=== PATIENT | female | born 1970 | race Caucasian/White ===

== ENCOUNTER 2016-08-20 14:26 | Observation (INO) ==
--- NOTE | 2016-08-20 14:44 | EKG Report ---
Stationary ECG Study [facility] ER Test Date: 08/20/2016 2:36:43 PM Pat Name: JESSICA MEEHAN Department: Room: Gender: F Memorial Designer: Carine Hernandez : 1970 Requested by: Jhonny Granado Order Number: [id number] Reading MD: PADMINI FLORES Intervals [place] Rate: 76 P: 33 [place]: 161 QRS: 29 QRSD: 89 T: 36 QT: 401 QTc: 431 Interpretive Statements SINUS RHYTHM Electronically Signed On 08-20-16 17:42:54 CDT by PADMINI FLORES [email or web address]
[2016-08-20] MEDS ORDERED: ASPIRIN 325 MG TABLET PO STA ×2 (15:05→15:07)
[2016-08-20] MEDS ORDERED: NITROGLYCERIN SL 0.4 MG TABLET SL STA (15:06)
[2016-08-20] MEDS ORDERED: ONDANSETRON 4 MG/2 ML VIAL IV STA (15:07)
[2016-08-20] MEDS ORDERED: ENOXAPARIN 100 MG/ML SYRINGE SUBCUT STA (15:07)
[2016-08-20] MEDS ORDERED: NITROGLYCERIN SL 0.4 MG TABLET SL PRN (15:07)
[2016-08-20] MEDS ORDERED: HYDROmorphone 2 MG/1 ML VIAL IV STA (15:07)
[2016-08-20] MEDS ORDERED: NITROGLYCERIN SL 0.4 MG TABLET SL ONE (15:08)
[2016-08-20] MEDS ORDERED: ASPIRIN 325 MG TABLET ONE (15:08)
[2016-08-20 15:25] LABS: Basophils # 0.1 10*3/uL (0.0-0.2); Basophils % 0.5 % (0.0-0.8); Eosinophils # 0.4 10*3/uL (0.0-0.87); Eosinophils % 2.6 % (0.00-10.9); Hematocrit 46.4 VOL% (35.7-47.0); Hemoglobin 15.3 GM/DL (12.0-16.0); Immature Granulocytes % 0.5 %; Immature Granulocytes Absolute 0.07 #; Lymphocytes # 3.2 10*3/uL (1.4-4.0); Lymphocytes % 23.6 % (21.3-54.2); Mean Corpuscular Hemoglobin 28 PG (27-34); Mean Corpuscular Volume 85.3 FL (87-102); Mean Platelet Volume 12.2 FL (9.6-12.0); Monocytes # 0.7 10*3/uL (0.11-0.8); Monocytes % 5.3 % (1.7-12.7); Neutrophils # 9.1 10*3/uL (1.4-7.4); Neutrophils % 67.5 % (38.7-73.9); Platelet Count 244 T/CUMM (130-400); Red Blood Count 5.44 MC/CUMM (3.8-5.5); Red Cell Distribution Width 13.5 % (9.3-17.3); White Blood Count 13.5 T/CUMM (4-12)
[2016-08-20] MEDS ORDERED: ONDANSETRON 4 MG/2 ML VIAL ONE (15:32)
[2016-08-20] MEDS ORDERED: ENOXAPARIN 100 MG/ML SYRINGE SUBCUT ONE (15:32)
[2016-08-20] MEDS ORDERED: HYDROmorphone 2 MG/1 ML VIAL ONE (15:32)
--- NOTE | 2016-08-20 15:53 | XRay Report ---
XR chest 1V portable Indication: Chest pain Comparison: Chest x-ray dated June 29, 2014 Technique: Single frontal view of the chest. Findings: The cardiomediastinal silhouette is stable in configuration. Chronic change of the lungs without focal consolidation, pleural effusion, or pneumothorax. Visualized osseous and surrounding soft tissue structures appear grossly unchanged. IMPRESSION: Stable chest x-ray without acute cardiopulmonary process demonstrated. PROCEDURE INTERPRETED AT [facility] DEPARTMENT OF RADIOLOGY Final Report Signed by: Dr Ken Powers
[2016-08-20 16:00] LABS: Alanine Aminotransferase 33 U/L (13-56); Albumin 3.4 G/DL (3.4-5.0); Alkaline Phosphatase 188 U/L (45-117); Aspartate Amino Transferase 20 U/L (0-37); Bilirubin,Total < 0.39 MG/DL (0.2-1.0); Blood Urea Nitrogen 13 MG/DL (7-18); Calcium 9.4 MG/DL (8.5-10.1); Glucose 87 MG/DL (74-106); Magnesium 2.6 MG/DL (1.8-2.4); Osmolality,Calculated 277.4 MOS/KG (273-304); Potassium 4.7 MMOL/L (3.5-5.1); Sodium 140 MMOL/L (136-145); Total Protein 7.9 G/DL (6.4-8.3); Troponin I Only < 0.015 NG/ML (0.00-0.045)
--- NOTE | 2016-08-20 16:53 | Emergency Department Note ---
Domonique Ayala Rolonda, am scribing for, and in the presence of, Clarke Rouse MD 15:16. Nasim Ayala Phillip K, MD, personally performed the services described in this documentation, ascribed by Jane Youssef in my presence, and it is both accurate and complete [id number] . 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 Unable to get blood pressure in triage pt would not hold still. Mode of Arrival: Wheelchair Limitations: No Limitations Source: Patient, Old Records Reviewed, RN Notes Reviewed Time Seen by Provider: 08/20/16 14:47 - History of Present Illness HPI Narrative: Pt is a 46 y/o female who presents to the ED via wheelchair with c/o chest pain that worsens with deep breaths with an onset of x2 hours. Pt has a SHx of smoking and a PMHx of HTN. She states that "it feels like an elephant is standing on my chest." Pt states that she was getting up to go outside but could not due to SOB and chest pain. She confirms vomiting, breaking out in a cold sweat, nausea but denies fever and cough. No other complain/pain in ED. Onset (ago): hour(s) Consistency: constant Severity: severe Severity scale (1-10): 8 (heavy) Allergies/Adverse Reactions: Allergies Allergy/AdvReac Type Severity Reaction Status Date / Time ketorolac [From Toradol] Allergy HIVES Verified 08/20/16 15:41 Home Medications: Home Medications Medication Instructions Recorded Confirmed Type Gabapentin 400 mg PO TID 08/20/16 08/20/16 History Hydrocodone/Acetaminophen [[place] 1 each PO BID 08/20/16 08/20/16 History 10-325 Tablet] Omeprazole [Prilosec] 20 mg PO BID 08/20/16 08/20/16 History Promethazine Tab [Phenergan Tab] 25 mg PO DAILY PRN 08/20/16 08/20/16 History Tizanidine HCl [Zanaflex] 4 mg PO TID PRN 08/20/16 08/20/16 History diazePAM [Diazepam] 10 mg PO BID PRN 08/20/16 08/20/16 History Review of System - Review of System 12 point system: reviewed and no additional remarkable complaints except as stated - Review of System Constitutional: Present: diaphoresis (cold ). Absent: fever Head/Ears/Nose/Throat: Absent: earache Respiratory: Present: respiratory distress (SOB). Absent: cough Cardiovascular: Present: chest pain (chest wall pain; worsens with deep breaths) Gastrointestinal: Present: nausea, vomiting. Absent: abdominal pain Medical,Surgical,& Family Hx - Medical History Cardio: History of: Hypertension Gastrointestinal: History of: GERD, GI Problems (Gastroporesis) Musculoskeletal: History of: Back/Neck Problems (Chronic back pain) - Social History Smoking Status: Current every day smoker Exam Vital Signs: Vital Signs Temperature 98 F 08/20/16 15:25 Pulse Rate 74 08/20/16 15:25 Respiratory Rate 18 08/20/16 15:25 Blood Pressure 148/89 08/20/16 15:25 O2 Sat by Pulse Oximetry 97 08/20/16 14:34 - General General appearance: alert, in distress - Head Head exam: Present: atraumatic, normocephalic - Eye Eye exam: Present: normal appearance, PERRL, EOMI - ENT ENT exam: Present: mucous membranes moist. Absent: mucous membranes dry - Neck Neck exam: Present: full ROM. Absent: tenderness - Chest Chest inspection: Present: tenderness (soreness across chest wall) - Respiratory Respiratory exam: Present: normal lung sounds bilaterally. Absent: rales - Cardiovascular Cardiovascular exam: Present: regular rate, normal rhythm, normal heart sounds. Absent: bradycardia - Abdominal Exam Abdominal exam: Present: soft. Absent: tenderness - Extremities Exam Extremities exam: Present: full ROM. Absent: tenderness - Back Exam Back exam: Present: full ROM. Absent: tenderness - Neurological Exam Neurological exam: Present: alert, oriented X3, CN II-XII intact - Psychiatric Psychiatric exam: Present: normal affect, normal mood - Skin Skin exam: Present: warm, dry, intact, normal color. Absent: rash Results - Labs CBC & BMP: 08/20/16 15:20 08/20/16 15:20 Lab Results: I have reviewed the patients labs Labs: Laboratory Tests 08/20/16 15:20 WBC 13.5 H RBC 5.44 Hgb 15.3 Hct 46.4 MCV 85.3 L Plt Count 244 MPV 12.2 H Neut # (Auto) 9.1 H Laboratory Tests 08/20/16 08/20/16 08/20/16 15:20 15:20 15:20 WBC RBC Hgb Hct MCV Plt Count MPV Neut # (Auto) ESR [place]gren 63 H D-Dimer, Quantitative <= 0.5 Sodium 140 Potassium 4.7 Chloride 105 Carbon Dioxide 28 BUN 13 GFR Calculation 103 Magnesium 2.6 H Alkaline Phosphatase 188 H Globulin 4.5 H Albumin/Globulin Ratio 0.7 L 08/20/16 15:20 WBC 13.5 H RBC 5.44 Hgb 15.3 Hct 46.4 MCV 85.3 L Plt Count 244 MPV 12.2 H Neut # (Auto) 9.1 H ESR [place] D-Dimer, Quantitative Sodium Potassium Chloride Carbon Dioxide BUN GFR Calculation Magnesium Alkaline Phosphatase Globulin Albumin/Globulin Ratio - EKG EKG results: interpreted by DOC, WNL, sinus rhythm - Diagnostic Findings Procedure: Chest x-ray: report reviewed by me (Stable chest x-ray without acute cardiopulmonary process demonstrated.) Disposition Clinical Impression: Chest pain, Chest wall pain, Possible angina, Tobacco abuse Case discussed with: patient Disposition: Still a Patient Condition: Guarded Additional Instructions: Admit to the hospitalist
--- NOTE | 2016-08-20 17:54 | Hospitalist History & Physical ---
Assessment and Plan - Time spent with patient Time spent with patient: Greater than 30 minutes (1) Chest pain Status: Acute Assessment and plan: Patient had fairly typical chest pain of approximately 1 hour duration. She had no significant EKG changes and her initial biomarkers were negative. She will be placed in observation overnight with cardiac monitoring, serial cardiac biomarkers and EKGs. She will be treated with aspirin, nitrates, beta-blockers , Lovenox. Cardiology will be consulted for further evaluation and care. Current Visit: Yes (2) Hypertension Status: Chronic Assessment and plan: Patient has chronic essential hypertension. She is hypertensive in the emergency department and will treat as noted above. Current Visit: Yes Qualifiers: Hypertension type: essential hypertension Qualified Code(s): I10 - Essential (primary) hypertension (3) Gastroparesis Status: Chronic Assessment and plan: Patient states she has had gastroparesis and takes erythromycin 3 times [address] She seen Dr. Marco Antonio Bowman and has had EGD with esophageal dilatation in the past. Current Visit: Yes (4) Hyperlipidemia Status: Chronic Assessment and plan: Patient states she has hyperlipidemia for which she takes Lipitor, dose unknown. Will check lipid panel in the a.m. and continue her statin therapy. Current Visit: Yes (5) Tobacco dependence Status: Chronic Assessment and plan: Have recommended smoking cessation and will supply a nicotine patch. Current Visit: Yes History of Present Illness Chief complaint: Chest pain History of present illness: Ms. Salazar is a 46 year old white female who states that approximately 1 PM this afternoon she was sitting down and began having severe substernal chest pressure like an elephant sitting on her chest associated with shortness of breath, diaphoresis, nausea and dizziness. She states when she got up to walk it actually exacerbated the pain. She states that she had the pain for approximately 1 hour duration which was relieved in the emergency room and they gave her some pain medication. She denies any fevers, chills, cough, sputum production, hemoptysis, abdominal pain, melena, hematochezia, hematemesis, dysuria, hematuria, urinary frequency urgency incontinence, increasing lower extremity edema, focal motor weakness or paresthesias, syncope or presyncope. Her primary care provider is Dr. Kelechi Payne and her structural draftsman is Dr. Marco Antonio Bowman. Home Medications Medication Instructions Recorded Confirmed Type Gabapentin 400 mg PO TID 08/20/16 08/20/16 History Hydrocodone/Acetaminophen [[place] 1 each PO BID 08/20/16 08/20/16 History 10-325 Tablet] Omeprazole [Prilosec] 20 mg PO BID 08/20/16 08/20/16 History Promethazine Tab [Phenergan Tab] 25 mg PO DAILY PRN 08/20/16 08/20/16 History Tizanidine HCl [Zanaflex] 4 mg PO TID PRN 08/20/16 08/20/16 History diazePAM [Diazepam] 10 mg PO BID PRN 08/20/16 08/20/16 History Allergies Allergy/AdvReac Type Severity Reaction Status Date / Time ketorolac [From Toradol] Allergy HIVES Verified 08/20/16 15:41 Medical,Surgical,& Family Hx - Medical History Cardio: History of: Hypertension Gastrointestinal: History of: GERD, GI Problems (Gastroporesis) Musculoskeletal: History of: Back/Neck Problems (Chronic back pain) - Surgical History Abdominal Surgeries: Surgical HX of: Cholecystectomy, EGD (She has had upper endoscopy with esophageal dilatation) Reproductive Surgeries: Surgical HX of;: Hysterectomy - Family History Family History: Reports;: Family Heart Disease - Social History Smoking Status: Current every day smoker Frequency of Alcohol Use: None Type of Drug Use: None Marital Status: Functional capacity: independent ambulation 12 point system: reviewed and no additional remarkable complaints except as stated Exam - Constitutional Vitals: Period Temp Pulse Resp BP Sys/[place] Pulse Ox Last 24 Hr 98 F-98.0 F 74-74 18-24 148/89 97 General appearance: no acute distress - Head Head exam: Present: normocephalic, atraumatic - Eye Eye exam: Present: EOMI Pupils: Present: FOX - ENT ENT exam: Present: normal exam, normal oropharynx - Neck Neck exam: Present: normal inspection. Absent: lymphadenopathy, meningismus, tenderness, thyromegaly - Respiratory Respiratory exam: Present: clear to auscultation bilaterally. Absent: rales, rhonchi, wheezes - Cardiovascular Cardiovascular exam: Present: regular rate and rhythm. Absent: gallop, JVD, systolic murmur, tachycardia - GI/Abdominal GI/Abdominal exam: Present: normal bowel sounds, soft. Absent: mass, tenderness , rebound - Extremities Exam Extremities exam: Absent: calf tenderness, edema - Back Exam Back exam: Present: normal inspection - Neurological Exam Neurological exam: Present: alert, oriented X3, CN II-XII intact. Absent: motor sensory deficit - Psychiatric Psychiatric exam: Present: normal affect, normal mood. Absent: agitated, anxious - Skin Skin exam: Present: warm, dry. Absent: rash Results - Labs CBC & BMP: 08/20/16 15:20 08/20/16 15:20 Lab Results: I have reviewed the past 24 hour labs - EKG EKG shows: sinus rhythm - Diagnostic Findings Procedure: Chest x-ray: report reviewed by me
[2016-08-20] MEDS ORDERED: DIAZEPAM 5 MG TABLET PO PRN (19:38)
[2016-08-20] MEDS ORDERED: ONDANSETRON 4 MG/2 ML VIAL IV PRN (19:38)
[2016-08-20] MEDS ORDERED: PROMETHAZINE 25 MG TABLET PO PRN (19:38)
[2016-08-20] MEDS ORDERED: INSULIN LISPRO 100 UNIT/ML SUBCUT ONE (19:38)
[2016-08-20] MEDS ORDERED: DEXTROSE 50% 25 GM/50 ML VIAL IV PRN (20:14)
[2016-08-20] MEDS ORDERED: GLUCAGON 1 MG VIAL IM PRN (20:14)
[2016-08-20] MEDS ORDERED: ATORVASTATIN 80 MG TABLET PO SCH (21:00)
[2016-08-20] MEDS ORDERED: ERYTHROMYCIN STEARATE 250 MG TABLET PO SCH (22:00)
[2016-08-20] MEDS: GABAPENTIN 400 MG CAPSULE PO SCH (22:28)
[2016-08-20] MEDS: METOPROLOL TARTRATE 50 MG TABLET PO SCH (22:29)
[2016-08-20] MEDS: SODIUM CHLORIDE 0.45% 1,000 ML IV SCH (22:29)
[2016-08-20] MEDS: NITROGLYCERIN 2% OINT 1 INCH/GM PACK TOP SCH (22:29)
[2016-08-20] MEDS: ERYTHROMYCIN INJ 250 MG in SODIUM CHLORIDE 0.9% 100 ML IV SCH (22:29)
[2016-08-20] MEDS: INSULIN LISPRO 100 UNIT/ML SUBCUT SCH (22:35)
[2016-08-20] MEDS: tiZANidine 4 MG TABLET PO PRN (23:49)
[2016-08-21] MEDS: NITROGLYCERIN 2% OINT 1 INCH/GM PACK TOP SCH ×2 (00:27→05:42)
[2016-08-21 05:27] LABS: Risk Ratio 9.4; VLDL CHOLESTEROL 66.6 MG/DL
[2016-08-21] MEDS: tiZANidine 4 MG TABLET PO PRN (05:43)
[2016-08-21] MEDS: ERYTHROMYCIN INJ 250 MG in SODIUM CHLORIDE 0.9% 100 ML IV SCH ×2 (05:43→15:21)
[2016-08-21] MEDS: INSULIN LISPRO 100 UNIT/ML SUBCUT SCH ×2 (08:04→12:37)
[2016-08-21] MEDS: GABAPENTIN 400 MG CAPSULE PO SCH ×2 (08:47→15:21)
[2016-08-21] MEDS: METOPROLOL TARTRATE 50 MG TABLET PO SCH (08:48)
[2016-08-21] MEDS: SODIUM CHLORIDE 0.45% 1,000 ML IV SCH (08:51)
[2016-08-21] MEDS ORDERED: NICOTINE 21 MG/24 HR PATCH TRANSDERM SCH (09:00)
[2016-08-21] MEDS ORDERED: PANTOPRAZOLE 40 MG TABLET PO SCH (09:00)
[2016-08-21] MEDS ORDERED: ASPIRIN EC 325 MG TABLET PO SCH (09:00)
--- NOTE | 2016-08-21 09:47 | Cardiology Consult Note ---
<Sayda Cid - Last Filed: 08/21/16 09:09> Assessment and Plan - Time spent with patient Time spent with patient: Greater than 30 minutes (1) Non-cardiac chest pain Status: Acute Assessment and plan: SEE PLAN OF CARE LISTED BELOW. Current Visit: Yes (2) Costochondritis Status: Acute Assessment and plan: SEE PLAN OF CARE LISTED BELOW. Current Visit: Yes (3) Dyslipidemia Status: Chronic Assessment and plan: SEE PLAN OF CARE LISTED BELOW. Current Visit: Yes (4) Obesity Status: Chronic Assessment and plan: SEE PLAN OF CARE LISTED BELOW. Current Visit: Yes (5) GERD (gastroesophageal reflux disease) Status: Chronic Assessment and plan: SEE PLAN OF CARE LISTED BELOW. Current Visit: Yes (6) Tobacco abuse Status: Chronic Assessment and plan: SEE PLAN OF CARE LISTED BELOW. Current Visit: Yes (7) Hypertension Status: Chronic Assessment and plan: SEE PLAN OF CARE LISTED BELOW. Current Visit: Yes Qualifiers: Hypertension type: essential hypertension Qualified Code(s): I10 - Essential (primary) hypertension (8) Tobacco dependence Status: Chronic Assessment and plan: SEE PLAN OF CARE LISTED BELOW. Current Visit: Yes (9) Asthma attack Status: Acute Assessment and plan: SEE PLAN OF CARE LISTED BELOW. Current Visit: Yes (10) Snoring Status: Acute Assessment and plan: SEE PLAN OF CARE LISTED BELOW Current Visit: Yes (11) Daytime sleepiness Status: Acute Assessment and plan: SEE PLAN OF CARE LISTED BELOW. 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 Arciniega, new) PCP: Dr. Kelechi Payne Ms. Salazar is a 46 year old female without known history of coronary artery disease, not routinely followed by local cardiology. Patient has cardiac risk factors significant for hypertension, lipidemia, obesity, sedentary lifestyle, current everyday smoker (smokes one half pack per day) and family history of coronary artery disease (father from massive myocardial infarction at age 62). Patient has a past medical history of gastroparesis and asthma. 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 Patient was in her usual state of health until yesterday around 1:00 when she began experiencing chest discomfort. She describes this pain as a heaviness located midsternally. Nonradiating. Associated with diaphoresis, dizziness, nausea and shortness of breath. She reports that deep breathing and certain positions worsen her pain. No exertional component reported. Unable to identify any specific alleviating factors. She reports that this lasted approximately 45 minutes. This concerned her so she came to the emergency department for further evaluation. In the emergency department, she received nitroglycerin and aspirin. She reports that this did not help her chest discomfort. After receiving Dilaudid, her chest discomfort was completely relieved. Patient has been admitted under hospitalist's service and housed in the telemetry unit. Cardiology has been consulted to further evaluate her chest discomfort. Of note, patient has symptoms concerning for sleep apnea. She confirms snoring and daytime sleepiness. I will consult Dr. Mahmood to further evaluate possible sleep apnea Patient was seen and examined on the telemetry unit. She continues to complain of chest heaviness midsternally. On exam, her chest is extremely tender to light palpation. When asked to lean forward so her lungs could be auscultated, she grimaces in pain and reports that this exacerbates her chest discomfort. Cardiac biomarkers have been negative 2. EKG is unremarkable. Patient's chest pain is not cardiac in nature. I suspect that this is costochondritis. However, patient does have cardiac risk factors including: Hypertension, hyperlipidemia, current everyday smoker, obesity, sedentary lifestyle and family history of coronary artery disease. Because of this, she will need cardiac workup. She will be given an appointment for outpatient stress test at cardiovascular [place] [facility] upon discharge. She will then follow with Dr. Arciniega 1 week post stress test in order to review her results. She is in favor of this plan. I will further discuss with Dr. Arciniega and await his additional recommendations. ASSESSMENT/PLAN: 1. NONCARDIAC CHEST PAIN - Patient chest pain is not cardiac in nature. On exam, her chest is extremely tender to light palpation. When asked to lean forward so her lungs could be auscultated, she grimaces in pain and reports that this exacerbates her chest discomfort. Cardiac biomarkers have been negative 2. EKG is unremarkable. I suspect that this is costochondritis. However, patient does have cardiac risk factors including: Hypertension, hyperlipidemia, current everyday smoker, obesity, sedentary lifestyle and family history of coronary artery disease. Because of this, she will need further cardiac workup. She will be given an appointment for outpatient stress test at cardiovascular [place] [facility] upon discharge. She will then follow with Dr. Arciniega 1 week post stress test in order to review her results. She is in favor of this plan. Echo has been ordered in order to further evaluate patient's LV function. I will further discuss with Dr. Arciniega and await his additional recommendations. 2. COSTOCHONDRITIS - Continue hydrocodone, Zanaflex and aspirin. Defer further management this to attending. 3. DYSLIPIDEMIA - Lipid panel has been reviewed. Patient reports that she has not been taking her statin as instructed. Lipitor 80 mg has been reinitiated per hospital medicine. 4. HYPERTENSION - Under well control. Continue current plan of care. Lopressor has been decreased to a daily dose as this could possibly be contributing to her wheezing. May consider switching from beta-aditi to possibly an SONIA inhibitor if this does not help. 5. ACUTE ASTHMA ATTACK - Wheezing noted upon exam. Patient may benefit from steroids and breathing treatments. Will defer management this to attending. 6. GERD - Continue PPI. 7. TOBACCO ABUSE - Smoking cessation encouraged. 8. OBESITY - Weight loss encouraged. 9. POSSIBLE SLEEP APNEA - Patient reports snoring and daytime sleepiness. Dr. Mahmood has been consulted in order to further evaluate possible sleep apnea. CC: Emile Dawkins MD - Home Medications and Allergies Home Medications: Home Medications Medication Instructions Recorded Confirmed Type Gabapentin 400 mg PO TID 08/20/16 08/20/16 History Hydrocodone/Acetaminophen [[place] 1 each PO BID 08/20/16 08/20/16 History 10-325 Tablet] Omeprazole [Prilosec] 20 mg PO BID 08/20/16 08/20/16 History Promethazine Tab [Phenergan Tab] 25 mg PO DAILY PRN 08/20/16 08/20/16 History Tizanidine HCl [Zanaflex] 4 mg PO TID PRN 08/20/16 08/20/16 History diazePAM [Diazepam] 10 mg PO BID PRN 08/20/16 08/20/16 History Allergies/Adverse Reactions: Allergies Allergy/AdvReac Type Severity Reaction Status Date / Time ketorolac [From Toradol] Allergy HIVES Verified 08/20/16 15:41 - Constitutional Constitutional: Present: daytime sleepiness, fatigue, headache(s). Absent: chills, fever(s), frequent falls, lethargy, malaise, weakness, weight gain, weight loss - Cardiovascular Cardiovascular: Present: chest pain at rest, diaphoresis, dyspnea, lightheadedness. Absent: chest pain with activity, claudication, dyspnea on exertion, edema, radiating jaw, neck or arm pain, orthopnea, palpitations, PND - Respiratory Respiratory: Present: cough, dyspnea, wheezing, snoring, pain on inspiration. Absent: hemoptysis, dyspnea on exertion, change in phlegm color - Gastrointestinal Gastrointestinal: Present: nausea. Absent: abdominal pain, coffee ground emesis , diarrhea, heartburn, hematemesis, hematochezia, loose stools, melena, vomiting - Neurological Neurological: Present: dizziness, headache(s). Absent: abnormal gait, abnormal speech, behavioral changes, frequent falls, numbness, paresthesias, syncope - Hematologic/Lymphatic Hematologic/Lymphatic: Absent: easy bleeding, easy bruising, lymphadenopathy Medical,Surgical,& Family Hx - Medical History Cardio: History of: Hypertension Endocrine: History of: Dyslipidemia Respiratory: History of: Asthma Gastrointestinal: History of: GERD, GI Problems (Gastroporesis) Musculoskeletal: History of: Back/Neck Problems (Chronic back pain) - Surgical History Cardiac Surgeries: Patient Denies: Cardiac Catheterization, Cardiac Surgery Abdominal Surgeries: Surgical HX of: Cholecystectomy, EGD (She has had upper endoscopy with esophageal dilatation) Reproductive Surgeries: Surgical HX of;: Hysterectomy - Family History Family History: Reports;: Family Heart Disease - Social History Smoking Status: Current every day smoker Frequency of Alcohol Use: None Type of Drug Use: None Marital Status: Single Lives With:: Children Functional capacity: independent ambulation Physical Examination Vital Signs Temp Pulse Resp Pulse Ox 98.0 F 74 24 97 08/20/16 14:34 08/20/16 14:34 08/20/16 14:34 08/20/16 14:34 Other: General: Appears well with no apparent distress. Pleasant and cooperative. Appears comfortable. HEENT: PERRL, normocephalic, atraumatic. Mucous membranes moist. No jaundice noted. Conjunctiva moist and clear, sclerae anicteric Neck: No JVD/HJR, no thyromegaly or lymphadenopathy noted. No carotid bruit appreciated Cardiac: Regular rate and rhythm. No murmur rub or gallop. Chest wall: Midsternal area is extremely tender to light palpation Lungs: Clear to auscultation with wheezing noted throughout. Requiring oxygen via nasal cannula intermittently. Abdomen: Soft, bowel sounds normoactive. Nontender and nondistended. No abdominal bruit or thrill noted. No masses noted. Extremities: No clubbing, cyanosis noted. No edema noted. Upper extremity pulses 2+. Lower extremity pulses 2+. Capillary refill less than 3 seconds. Skin: No unusual lesions or rashes. No skin breakdown appreciated. Neuro: Awake, alert and oriented 3. Moves all extremities well without hemiparesis or paralysis. No essential tremor is appreciated. Result/EKG - Labs CBC & BMP: 08/20/16 15:20 08/20/16 15:20 Lab Results: I have reviewed the past 24 hour labs Labs: Laboratory Results - last 24 hr 08/20/16 08/20/16 08/20/16 15:20 15:20 15:20 WBC RBC Hgb Hct MCV MCH MCHC RDW Plt Count MPV Neut % (Auto) Lymph % (Auto) [place] % (Auto) Eos % (Auto) Baso % (Auto) Neut # (Auto) Lymph # (Auto) [place] # (Auto) Eos # (Auto) Baso # (Auto) Immature Gran % Nucleated RBC % Immature Gran # Nucleated RBCs # ESR W[place] 63 H D-Dimer, Quantitative <= 0.5 Sodium 140 Potassium 4.7 Chloride 105 Carbon Dioxide 28 Anion Gap 11.7 BUN 13 Creatinine 0.80 GFR Calculation 103 BUN/Creatinine Ratio 16.00 Glucose 87 POC Glucose Calculated Osmolality 277.4 Calcium 9.4 Magnesium 2.6 H Total Bilirubin < 0.39 AST 20 ALT 33 Alkaline Phosphatase 188 H Troponin I < 0.015 Total Protein 7.9 Albumin 3.4 Globulin 4.5 H Albumin/Globulin Ratio 0.7 L Triglycerides Cholesterol LDL Cholesterol VLDL Cholesterol HDL Cholesterol Heart Disease Risk Ratio Lipase 149.0 08/20/16 08/20/16 08/20/16 15:20 20:50 22:34 WBC 13.5 H RBC 5.44 Hgb 15.3 Hct 46.4 MCV 85.3 L MCH 28 MCHC 33.0 RDW 13.5 Plt Count 244 MPV 12.2 H Neut % (Auto) 67.5 Lymph % (Auto) 23.6 [place] % (Auto) 5.3 Eos % (Auto) 2.6 Baso % (Auto) 0.5 Neut # (Auto) 9.1 H Lymph # (Auto) 3.2 [place] # (Auto) 0.7 Eos # (Auto) 0.4 Baso # (Auto) 0.1 Immature Gran % 0.5 Nucleated RBC % 0.0 Immature Gran # 0.07 Nucleated RBCs # 0.00 ESR [place] D-Dimer, Quantitative Sodium Potassium Chloride Carbon Dioxide Anion Gap BUN Creatinine GFR Calculation BUN/Creatinine Ratio Glucose POC Glucose 147 H Calculated Osmolality Calcium Magnesium Total Bilirubin AST ALT Alkaline Phosphatase Troponin I < 0.015 Total Protein Albumin Globulin Albumin/Globulin Ratio Triglycerides Cholesterol LDL Cholesterol VLDL Cholesterol HDL Cholesterol Heart Disease Risk Ratio Lipase 08/21/16 08/21/16 04:54 07:10 WBC RBC Hgb Hct MCV MCH MCHC RDW Plt Count MPV Neut % (Auto) Lymph % (Auto) [place] % (Auto) Eos % (Auto) Baso % (Auto) Neut # (Auto) Lymph # (Auto) [place] # (Auto) Eos # (Auto) Baso # (Auto) Immature Gran % Nucleated RBC % Immature Gran # Nucleated RBCs # ESR [place] D-Dimer, Quantitative Sodium Potassium Chloride Carbon Dioxide Anion Gap BUN Creatinine GFR Calculation BUN/Creatinine Ratio Glucose POC Glucose 118 H Calculated Osmolality Calcium Magnesium Total Bilirubin AST ALT Alkaline Phosphatase Troponin I Total Protein Albumin Globulin Albumin/Globulin Ratio Triglycerides 333 H Cholesterol 282 H LDL Cholesterol 179.0 VLDL Cholesterol 66.6 HDL Cholesterol 30 L Heart Disease Risk Ratio 9.40 Lipase - EKG EKG results: interpreted by me, sinus rhythm EKG shows: bradycardia Specialty Discharge - Follow Up or Referrals Follow up with: Dakota Arciniega MD [Physician] - 1 Week (Patient will need an appointment for outpatient cardiac stress testing within 1 week at cardiovascular [place] [facility]. She will then need a follow-up appoint with Dr. Arciniega in 1 week after completing stress test in order to review results.) <Dakota Arciniega - Last Filed: 08/21/16 14:12> History of Present Illness - Consult Narrative History of present illness: Cardiology addendum Patient examined chart reviewed and discussed with nurse Sayda Cid RN. Patient has chest wall tenderness to palpation consistent with costochondritis. Asthma Active smoker Suspect obstructive sleep apnea CAD risk factors Plan Echo Doppler Inhalers nebs/ Analgesics as needed Outpatient exercise cardiac stress test in a week or 2 after she recovers from asthma exacerbation Outpatient sleep study CC: Emile Dawkins MD Physical Examination Vital Signs Temp Pulse Resp Pulse Ox 98.0 F 74 24 97 08/20/16 14:34 08/20/16 14:34 08/20/16 14:34 08/20/16 14:34 Result/EKG - Labs CBC & BMP: 08/20/16 15:20 08/20/16 15:20 Labs: Laboratory Results - last 24 hr 08/20/16 08/20/16 08/20/16 15:20 15:20 15:20 WBC RBC Hgb Hct MCV MCH MCHC RDW Plt Count MPV Neut % (Auto) Lymph % (Auto) [place] % (Auto) Eos % (Auto) Baso % (Auto) Neut # (Auto) Lymph # (Auto) [place] # (Auto) Eos # (Auto) Baso # (Auto) Immature Gran % Nucleated RBC % Immature Gran # Nucleated RBCs # ESR [place] 63 H D-Dimer, Quantitative <= 0.5 Sodium 140 Potassium 4.7 Chloride 105 Carbon Dioxide 28 Anion Gap 11.7 BUN 13 Creatinine 0.80 GFR Calculation 103 BUN/Creatinine Ratio 16.00 Glucose 87 POC Glucose Hemoglobin A1c Calculated Osmolality 277.4 Calcium 9.4 Magnesium 2.6 H Total Bilirubin < 0.39 AST 20 ALT 33 Alkaline Phosphatase 188 H Troponin I < 0.015 Total Protein 7.9 Albumin 3.4 Globulin 4.5 H Albumin/Globulin Ratio 0.7 L Triglycerides Cholesterol LDL Cholesterol VLDL Cholesterol HDL Cholesterol Heart Disease Risk Ratio Lipase 149.0 08/20/16 08/20/16 08/20/16 15:20 20:50 22:34 WBC 13.5 H RBC 5.44 Hgb 15.3 Hct 46.4 MCV 85.3 L MCH 28 MCHC 33.0 RDW 13.5 Plt Count 244 MPV 12.2 H Neut % (Auto) 67.5 Lymph % (Auto) 23.6 [place] % (Auto) 5.3 Eos % (Auto) 2.6 Baso % (Auto) 0.5 Neut # (Auto) 9.1 H Lymph # (Auto) 3.2 [place] # (Auto) 0.7 Eos # (Auto) 0.4 Baso # (Auto) 0.1 Immature Gran % 0.5 Nucleated RBC % 0.0 Immature Gran # 0.07 Nucleated RBCs # 0.00 ESR [place] D-Dimer, Quantitative Sodium Potassium Chloride Carbon Dioxide Anion Gap BUN Creatinine GFR Calculation BUN/Creatinine Ratio Glucose POC Glucose 147 H Hemoglobin A1c Calculated Osmolality Calcium Magnesium Total Bilirubin AST ALT Alkaline Phosphatase Troponin I < 0.015 Total Protein Albumin Globulin Albumin/Globulin Ratio Triglycerides Cholesterol LDL Cholesterol VLDL Cholesterol HDL Cholesterol Heart Disease Risk Ratio Lipase 08/21/16 08/21/16 08/21/16 04:54 07:10 10:45 WBC RBC Hgb Hct MCV MCH MCHC RDW Plt Count MPV Neut % (Auto) Lymph % (Auto) [place] % (Auto) Eos % (Auto) Baso % (Auto) Neut # (Auto) Lymph # (Auto) [place] # (Auto) Eos # (Auto) Baso # (Auto) Immature Gran % Nucleated RBC % Immature Gran # Nucleated RBCs # ESR [place] D-Dimer, Quantitative Sodium Potassium Chloride Carbon Dioxide Anion Gap BUN Creatinine GFR Calculation BUN/Creatinine Ratio Glucose POC Glucose 118 H Hemoglobin A1c 5.9 Calculated Osmolality Calcium Magnesium Total Bilirubin AST ALT Alkaline Phosphatase Troponin I Total Protein Albumin Globulin Albumin/Globulin Ratio Triglycerides 333 H Cholesterol 282 H LDL Cholesterol 179.0 VLDL Cholesterol 66.6 HDL Cholesterol 30 L Heart Disease Risk Ratio 9.40 Lipase
--- NOTE | 2016-08-21 12:24 | Hospitalist Progress Note ---
Assessment and Plan (1) Chest pain Status: Acute Assessment and plan: Cardiac enzymes were essentially negative; patient continues to verbalize complaints of midsternal chest pain. I agree with street roller engineer recommendation for a stress test in outpatient setting. The patient has multiple risk factors including hyperlipidemia, strong family history for coronary artery disease, morbid obesity, and hypertension. I feel that the plan of care is appropriate. Spoke to the patient in great detail regarding the importance of medication compliance, adherence to dietary restrictions, smoking necessitation, weight loss, and increase in exercise. Current Visit: Yes (2) Dyslipidemia Status: Chronic Assessment and plan: Total cholesterol was noted at 282, triglycerides 333, HDL at 30. Patient is currently on Lipitor 80 mg p.o. daily. Patient reports that she was recently placed on Lipitor a couple of months ago after she had her lipid panel drawn and at that time her total cholesterol was noted at over 500. Current Visit: Yes (3) Obesity Status: Chronic Assessment and plan: Spoke with patient in great detail regarding the need to lose weight and increase exercise. Patient reports that she is very much interested in trying to lose weight. Current Visit: Yes Hospitalist: Subjective Interval history: Patient seen and examined; chart reviewed. Seen by cardiology today. Agree with cardiology recommendation for stress test in outpatient setting. Patient continues to report midsternal chest pain however cardiac enzymes are essentially negative. Exam - Constitutional Vitals: Period Temp Pulse Resp BP Sys/[place] Pulse Ox Last 24 Hr 96.0 F-98.3 F 50-74 16-24 106-153/58-89 93-98 General appearance: no acute distress, morbidly obese - Head Head exam: Present: normal inspection, normocephalic, atraumatic - Eye Eye exam: Present: EOMI, conjunctival injection. Absent: nystagmus Pupils: Present: FOX, normal accommodation - ENT ENT exam: Present: normal exam, normal external ear exam, normal oropharynx - Neck Neck exam: Present: normal inspection. Absent: lymphadenopathy, meningismus, thyromegaly - Respiratory Respiratory exam: Present: wheezes - Cardiovascular Cardiovascular exam: Present: other (Midsternal tenderness upon gentle palpation ). Absent: carotid bruit, diastolic murmur, gallop, JVD, rubs, systolic murmur - GI/Abdominal GI/Abdominal exam: Present: normal bowel sounds, soft - Extremities Exam Extremities exam: Present: normal inspection, normal capillary refill, full ROM. Absent: edema - Back Exam Back exam: Present: normal inspection - Neurological Exam Neurological exam: Present: alert, oriented X3, CN II-XII intact - Psychiatric Psychiatric exam: Present: normal affect, normal mood - Skin Skin exam: Present: normal color, warm, dry Results - Labs CBC & BMP: 08/20/16 15:20 08/20/16 15:20 Lab Results: I have reviewed the past 24 hour labs Specialty Discharge - Follow Up or Referrals Follow up with: Dakota Arciniega MD [Physician] - 1 Week (Patient will need an appointment for outpatient cardiac stress testing within 1 week at cardiovascular [place] [facility]. She will then need a follow-up appoint with Dr. Arciniega in 1 week after completing stress test in order to review results.)
[2016-08-21] MEDS ORDERED: oxyCODONE/ACETAMINOPHEN 5-325 MG TABLET PO ONE (12:38)
--- NOTE | 2016-08-21 13:37 | Sleep Medicine Consult ---
Assessment and Plan (1) Unspecified sleep apnea Status: Acute Assessment and plan: Ms. Salazar has complaints including abnormal breathing and choking during sleep, frequent sleep disruption and daytime fatigue and sleepiness, all of which are often seen in underlying sleep apnea. She had a positive sleep apnea screening with 4 out of 8 answers positive on the stop bang and an elevated [place] sleepiness score of 11. On physical exam, she has Mallampati class IV exam with a neck circumference of 17 inches, also commonly seen in underlying sleep apnea. I discussed obstructive sleep apnea as well as the testing and treatments that are recommended. She verbalized understanding and wishes to continue with further workup. I will set her up for outpatient polysomnography at her earliest convenience and follow-up will be pending those results. Qualifiers: Sleep apnea type: unspecified type Qualified Code(s): G47.30 - Sleep apnea , unspecified History of Present Illness Chief complaint: abnormal breathing during sleep History of present illness: Ms. Salazar is a 46 year old female who was admitted through the emergency room yesterday with chest pain. She is in the process of undergoing a cardiac evaluation to rule out causes of her pain. Sleep medicine was consulted after positive screening for sleep apnea. She had a positive response to the stop bang with a score of 4 and an elevated [place] sleepiness score of 11. She does admit to having choking sensations often during her sleep. She is unsure if she snores during her sleep. She is unable to sleep supine and does require 3 pillows for support, otherwise she cant catch her breath. She reports going to bed nightly around 12 PM and will awaken around 9 AM. Throughout the night, she has frequent sleep disruption as well as frequent urination up to 4 or 5 times nightly. She sleeps with her 9 and 10-year-old grandsons. She does admit to feelings of restlessness in her legs, especially in the evening and afternoon hours. She has to move her legs around for symptom relief. Throughout the day, despite being fatigued and sleepy, she is busy working around her home. She lives with her grandchildren, her mother along with her daughter and son. She does admit to excessive caffeine intake and drinks over 1 -1/[address] [place] daily. She continues to smoke daily and states a pack of cigarettes will last HER-2 days. Her past medical history is significant for obesity, esophageal reflux disease, hypercholesterolemia and hypertension. She is currently under the care of Dr. Arciniega from cardiology. She believes that she will be discharged later today or tomorrow a pending test results. Home Medications Medication Instructions Recorded Confirmed Type Gabapentin 400 mg PO TID 08/20/16 08/20/16 History Hydrocodone/Acetaminophen [[place] 1 each PO BID 08/20/16 08/20/16 History 10-325 Tablet] Omeprazole [Prilosec] 20 mg PO BID 08/20/16 08/20/16 History Promethazine Tab [Phenergan Tab] 25 mg PO DAILY PRN 08/20/16 08/20/16 History Tizanidine HCl [Zanaflex] 4 mg PO TID PRN 08/20/16 08/20/16 History diazePAM [Diazepam] 10 mg PO BID PRN 08/20/16 08/20/16 History Allergies Allergy/AdvReac Type Severity Reaction Status Date / Time ketorolac [From Toradol] Allergy HIVES Verified 08/20/16 15:41 - Constitutional Constitutional: Present: daytime sleepiness, lethargy - Cardiovascular Cardiovascular: Present: chest pain with activity, dyspnea, dyspnea on exertion , orthopnea - Respiratory Respiratory: Present: cough, wheezing - Gastrointestinal Gastrointestinal: Present: heartburn. Absent: bloating - Genitourinary Genitourinary: Present: urinary frequency - Musculoskeletal Musculoskeletal: Present: arthralgias - Neurological Neurological: Absent: behavioral changes, dizziness, headache(s), syncope - Psychiatric Psychiatric: Present: anxiety, depression - Endocrine Endocrine: Present: fatigue Exam ([place]mon[place]) H&P - Constitutional Vitals: Period Temp Pulse Resp BP Sys/Almazan Pulse Ox Last 24 Hr 96.0 F-98.3 F 50-74 16-24 106-153/58-89 93-98 General appearance: over weight - Head Head exam: Present: normocephalic, atraumatic - Eye Pupils: Present: FOX - ENT ENT exam: Present: other (Mallampati class IV/ no erythema or exudate) - Neck Neck exam: Present: other (large neck with neck circ of 17"). Absent: lymphadenopathy, thyromegaly - Respiratory Respiratory exam: Present: clear to auscultation bilaterally. Absent: rhonchi, wheezes - Cardiovascular Cardiovascular exam: Present: regular rate and rhythm. Absent: gallop, rubs - GI/Abdominal GI/Abdominal exam: Present: normal bowel sounds, soft. Absent: distended - Extremities Exam Extremities exam: Present: normal capillary refill, full ROM. Absent: edema - Neurological Exam Neurological exam: Present: alert, oriented X3 - Psychiatric Psychiatric exam: Present: normal mood - Skin Skin exam: Present: warm, dry. Absent: erythema, rash Medical,Surgical,& Family Hx - Medical History Cardio: History of: Hypertension Endocrine: History of: Dyslipidemia Respiratory: History of: Asthma Gastrointestinal: History of: GERD, GI Problems (Gastroporesis) Musculoskeletal: History of: Back/Neck Problems (Chronic back pain) - Surgical History Cardiac Surgeries: Patient Denies: Cardiac Catheterization, Cardiac Surgery Abdominal Surgeries: Surgical HX of: Cholecystectomy, EGD (She has had upper endoscopy with esophageal dilatation) Reproductive Surgeries: Surgical HX of;: Hysterectomy - Family History Family History: Reports;: Family Heart Disease - Social History Smoking Status: Current every day smoker Frequency of Alcohol Use: None Type of Drug Use: None Results - Labs CBC & BMP: 08/20/16 15:20 08/20/16 15:20 Specialty Discharge - Follow Up or Referrals Follow up with: Dakota Arciniega MD [Physician] - 1 Week (Patient will need an appointment for outpatient cardiac stress testing within 1 week at [facility]. She will then need a follow- up appoint with Dr. Arciniega in 1 week after completing stress test in order to review results. STRESS TEST AUGUST 28, 2016 AT 10:00 AM FOLLOW UP WITH DR. ARCINIEGA ON SEPTEMBER 23, 2016 AT 1:00 PM)
--- NOTE | 2016-08-21 13:38 | Ultrasound Report ---
US carotid duplex BI Indication: Hyperlipidemia. Comparison: None. Technique: Multiple longitudinal and transverse real-time sonographic images of the bilateral carotid arterial systems are obtained with grayscale, spectral, and color Doppler analysis. Findings: Peak systolic velocities within the right CCA, proximal ICA, and distal ICA are 79, 82, and 118 cm/s respectively. Peak systolic velocities within the left CCA, proximal ICA, and distal ICA are 71, 70, and 83 cm/s respectively. ICA/CCA ratios on the right and left are 1.5 and 1.2 respectively. Antegrade flow demonstrated within the bilateral vertebral arteries. Grayscale imaging demonstrates minimal atelectatic plaque bilaterally. IMPRESSION: No convincing sonographic evidence of significant (50% or greater) narrowing of either cervical internal carotid artery. Indirect NASCET criteria utilized. PROCEDURE INTERPRETED AT [facility] DEPARTMENT OF RADIOLOGY Final Report Signed by: Dr Ken Powers
--- NOTE | 2016-08-21 15:39 | Discharge Summary ---
Hospital Course - Hospital Course Hospital Course: The patient was admitted to the hospital with chest discomfort consistent with costochondritis. Myocardial infarction was ruled out by EKG and enzymes. The patient was seen by the attending radiologist and he requested the patient follow up with him in the office for an outpatient stress test. The patient's discomfort has improved and she is now ready for discharge home. On the date of discharge , chest is clear and abdomen soft. 34 minutes were required for [id number] visit today, examination, follow-up of testing, coordination with healthcare economics consultant, and discharge documentation. - Time spent with patient Time with patient DS: Greater than 30 minutes Diagnosis - Discharge Diagnosis (1) Chest wall pain Status: Acute (2) Gastroparesis Status: Chronic Specialty Discharge - Follow Up or Referrals Follow up with: Dakota Arciniega MD [Physician] - 1 Week (Patient will need an appointment for outpatient cardiac stress testing within 1 week at [facility]. She will then need a follow-up appoint with Dr. Arciniega in 1 week after completing stress test in order to review results.) Discharge Plan - Discharge Data Disposition: Disch To Home/Self Care Condition at Discharge: Stable - Discharge Medications Continue Omeprazole [Prilosec] 20 mg PO BID Tizanidine HCl [Zanaflex] 4 mg PO TID PRN PRN Reason: Pain Promethazine Tab [Phenergan Tab] 25 mg PO DAILY PRN PRN Reason: Nausea Gabapentin 400 mg PO TID Hydrocodone/Acetaminophen [[place] 10-325 Tablet] 1 each PO BID diazePAM [Diazepam] 10 mg PO BID PRN PRN Reason: Anxiety - Follow Up or Referral Follow Up: Dakota Arciniega MD [Physician] - 1 Week (Patient will need an appointment for outpatient cardiac stress testing within 1 week at [facility]. She will then need a follow-up appoint with Dr. Arciniega in 1 week after completing stress test in order to review results.) - Forms/Instructions Exam - Constitutional Vitals: Period Temp Pulse Resp BP Sys/Almazan Pulse Ox Last 24 Hr 96.0 F-98.3 F 50-61 16-20 106-153/58-76 93-98 Discharge Results Procedures and tests throughout hospitalization: Pending Orders 08/22/16 04:00 BMP w/ Mg [Basic Metabolic Panel w/Mg] IN AM CBC [Comp Blood Count Auto Diff] IN AM 08/23/16 04:00 BMP w/ Mg [Basic Metabolic Panel w/Mg] IN AM CBC [Comp Blood Count Auto Diff] IN AM Labs on day of discharge: Labs from last 24 hours 08/21/16 08/21/16 08/21/16 10:45 07:10 04:54 ESR [place] D-Dimer, Quantitative Sodium Potassium Chloride Carbon Dioxide Anion Gap BUN Creatinine GFR Calculation BUN/Creatinine Ratio Glucose POC Glucose 118 H Hemoglobin A1c 5.9 Calculated Osmolality Calcium Magnesium Total Bilirubin AST ALT Alkaline Phosphatase Troponin I Total Protein Albumin Globulin Albumin/Globulin Ratio Triglycerides 333 H Cholesterol 282 H LDL Cholesterol 179.0 VLDL Cholesterol 66.6 HDL Cholesterol 30 L Heart Disease Risk Ratio 9.40 Lipase 08/20/16 08/20/16 08/20/16 22:34 20:50 15:20 ESR [place] D-Dimer, Quantitative Sodium 140 Potassium 4.7 Chloride 105 Carbon Dioxide 28 Anion Gap 11.7 BUN 13 Creatinine 0.80 GFR Calculation 103 BUN/Creatinine Ratio 16.00 Glucose 87 POC Glucose 147 H Hemoglobin A1c Calculated Osmolality 277.4 Calcium 9.4 Magnesium 2.6 H Total Bilirubin < 0.39 AST 20 ALT 33 Alkaline Phosphatase 188 H Troponin I < 0.015 < 0.015 Total Protein 7.9 Albumin 3.4 Globulin 4.5 H Albumin/Globulin Ratio 0.7 L Triglycerides Cholesterol LDL Cholesterol VLDL Cholesterol HDL Cholesterol Heart Disease Risk Ratio Lipase 149.0 08/20/16 08/20/16 15:20 15:20 ESR [place] 63 H D-Dimer, Quantitative <= 0.5 Sodium Potassium Chloride Carbon Dioxide Anion Gap BUN Creatinine GFR Calculation BUN/Creatinine Ratio Glucose POC Glucose Hemoglobin A1c Calculated Osmolality Calcium Magnesium Total Bilirubin AST ALT Alkaline Phosphatase Troponin I Total Protein Albumin Globulin Albumin/Globulin Ratio Triglycerides Cholesterol LDL Cholesterol VLDL Cholesterol HDL Cholesterol Heart Disease Risk Ratio Lipase DS: Provider Date of admission: 08/20/16 17:43 Primary care physician: . No PCP Attending physician on admission: Ashley Dominguez MD Consults: 08/20/16 19:38 Consult to Physician [CONS] Routine Comment: ppp Consulting Provider: Cardiology - [facility] Consulting Provider Notified: No When should Consulting Provider be notified: In am Person Notified: Destiny Date Notified: 08/21/16 Time Notified: 08:30 08/20/16 20:24 Consult to Pastoral Services [CONS] Routine Comment: Pastoral Screen: Declines Visit Pastoral Screen Source of Request: Patient 08/21/16 09:48 Consult to Physician [CONS] Routine Comment: SNORING, DAYTIME SLEEPINESS. Consulting Provider: Stefany Mahmood 08/21/16 09:58 Consult to Sleep Center [CONS] Routine Reason for Sleep Center: Sleep Center Physician Consult Comment: Snoring, daytime sleepiness Discharging clinician: Emile Dawkins MD
[2016-08-21 16:07] VITALS: BP 139/67
--- NOTE | 2016-08-21 17:30 | ECHO Report ---
Nohemi Salazar Exam Date: 08/21/2016 15:43 Referring Physician: Technologist: lalit Onofre ARDMS, RVT Age: 46 Ht (in): 64 Wt (lb): 220 Gender: F Exam Location: [facility] Echo Indications: Non cardiac chest pain, GERD, Dyslipidemia, Costochondritis, obesity, Tobacco use BP: 126 / 66 HR: 55 Rhythm: Sinus Technical Quality: Technically difficult study IMPRESSIONS Technically difficult study. EF 60 % . Grade I/IV diastolic dysfunction (abnormal relaxation filling pattern), normal to mildly elevated filling pressuresThe right ventricle is normal in size and function. The right atrium is mildly enlarged. The left atrium is mildly enlarged. Morphologically normal mitral valve. No mitral valve regurgitation. The aortic valve is trileaflet and has normal motion. No aortic valve regurgitation. Mild tricuspid valve regurgitation. PAP40 mmHG. Pulmonic valve not well visualized. Normal pericardium without effusion. Normal ascending aorta dimension. MEASUREMENTS (Male / Female) Normal Values 2D ECHO LV Diastolic Diameter PLAX 3.6 cm 4.2 - 5.9 / 3.9 - 5.3 cm LV Systolic Diameter PLAX 2.2 cm LV Fractional Shortening PLAX 39.7 % IVS Diastolic Thickness 0.8 cm 0.6 - 1.0 / 0.6 - 0.9 cm LVPW Diastolic Thickness 0.8 cm 0.6 - 1.0 / 0.6 - 0.9 cm RV Internal Dim ED PLAX 3.2 cm Aortic Root Diameter 2.9 cm LA Systolic Diameter LX 3.7 cm 3.0 - 4.0 / 2.7 - 3.8 cm DOPPLER TR Peak Velocity 213.0 cm/s TR Peak Gradient 18.1 mmHg FINDINGS Left Ventricle EF 60 % . Grade I/IV diastolic dysfunction (abnormal relaxation filling pattern), normal to mildly elevated filling pressures. Right Ventricle The right ventricle is normal in size and function. Right Atrium The right atrium is mildly enlarged. Left Atrium The left atrium is mildly enlarged. Mitral Valve Morphologically normal mitral valve. No mitral valve regurgitation. Aortic Valve The aortic valve is trileaflet and has normal motion. No aortic valve regurgitation. Tricuspid Valve Morphologically normal tricuspid valve. Mild tricuspid valve regurgitation. PAP40 mmHG. Pulmonic Valve Pulmonic valve not well visualized. Pericardium Normal pericardium without effusion. Aorta Normal ascending aorta dimension. Darrin Arciniega (Electronically Signed) Final Date: 21 August 2016 17:30
[2016-08-21] MEDS ORDERED: ENOXAPARIN 40 MG/0.4 ML SYRINGE SUBCUT SCH (21:00)
[2016-08-22] MEDS ORDERED: METOPROLOL TARTRATE 50 MG TABLET PO SCH (09:00)
== END 2016-08-21 18:30 | disposition home or self-care (01) ==
LOC: N.EDINP 14:26 → N.ED 14:26 → SUATTDRO 17:43 → N.TELES 18:59
PROVIDERS: ADMIT Family Medicine; ATTEND Internal Medicine